=== PATIENT | female | born 1955 | race Caucasian/White ===

== ENCOUNTER 2016-10-02 11:18 | Day surgery (SDC) | payer MEDICARE ==
[2016-10-02] VITALS (13 sets, daily range): BP systolic 130–186; BP diastolic 64–85; PULSE 73–100; RESP 14–18; O2SAT 84–100
[~2016-10-02] VITALS: Ht 162.6 cm; Wt 80.4 kg
--- NOTE | 2016-10-02 06:44 | PCM.HPANE ---
Patient Data Surgeon Admitting Provider: Attending Provider:Bryan Montenegro DPM Primary Care Physician:Melody Hansen MD Other Provider:Marilu Kenyon Anesthesia Reason for Visit Right Hag[place], Retro Calcaneal Bursitis Ht/WT & BMI Height (Feet): 5 Height (Inches): 4 Weight (Kilograms): 82.1 Body Mass Index 30.00 Allergies Coded Allergies: methocarbamol (Verified Allergy, Severe, jittery and hyper, 10/31/09) Past Anesthesia History Anesthesia History: Denies:: Abnormal Airway, Anesthesia Reactions, Difficult Intubation, Fam Anesthesia Reaction, Fam Malignant Hypertherm, Malignant Hyperthermia Diabetes History Hx Diabetes?: Yes Type of Diabetes: Type II Glycemic Control: Oral Medication MRSA MRSA: Yes (2 WEEKS) Medications Reported Medications Albuterol HFA (Proair HFA)8.5 Gm Hfa.aer.ad2 Puffs INHALATION Q4H PRN For Wheezing #1 INHALER 10/02/16 Levothyroxine Sodium (Levo-T)88 Mcg Lzaqji19 Mcg PO MORNING 10/02/16 Fluticasone Propionate (Fluticasone Propionate Nasal)16 Gm [place].susp1 [place] NS BID #16 GM Ref 0 10/02/16 Cyclobenzaprine 10 Mg Dggpkc10 Mg PO HS PRN Spasm Ref 0 10/02/16 Fluticasone Propionate (Flovent HFA 110 mcg)12 Gm Aer.w.adap2 Puffs IH BID #12 GM Ref 0 09/30/16 Hydrocodone-Acetaminophen 5-325 mg 1 Each Tablet1 Tablet PO Q4H PRN For Pain Ref 0 09/30/16 Meclizine (Bonine)25 Mg Tab.chew25 Mg PO PRN For Dizziness 09/30/16 Montelukast 10 Mg Hykzha15 Mg PO HS Ref 0 09/30/16 Pregabalin (Lyrica)150 Mg Wkyjotz913 Mg PO BID 30 Days Ref 0 09/30/16 Duloxetine 60 Mg Capsule.dr60 Mg PO DAILY Ref 0 09/30/16 Metformin 500 Mg Akvmbe873 Mg PO DAILY Ref 0 09/30/16 Omeprazole Magnesium (Prilosec Otc)20 Mg Tablet.dr20 Mg PO DAILY #1 PKG Ref 0 09/30/16 Atorvastatin (Lipitor)10 Mg Tab10 Mg PO DAILY Ref 0 1/18/17 Discontinued Reported Medications Albuterol Sulfate (Ventolin HFA Inhaler)200 Puff/18 Gm Inhaler1 Puff INH Q4 PRN For Wheezing #1 INHALER Ref 0 09/30/16 Naproxen-Expunged Drug, Do Not Renew! (Naprosyn-Expunged Drug, Do Not Renew!) 500 Mg Htabeh263 Mg PO BID Ref 0 10/31/09 Levothyroxine-Expunged Drug, Do Not Renew! (Levoxyl-Expunged Drug, Do Not Renew! )88 Mcg Kmoftk29 Mcg PO AM Ref 0 10/31/09 Piroxicam-Expunged Drug, Do Not Renew! (Feldene-Expunged Drug, Do Not Renew!)20 Mg Fpekcdr81 Mg PO DAILY Ref 0 prn 10/31/09 Cyclobenzaprine-Expunged Drug, Do Not Renew! (Flexeril-Expunged Drug, Do Not Renew!)10 Mg Kvrrjw01 Mg PO HS Ref 0 prn 10/31/09 Trazodone-Expunged Drug, Do Not Renew! 50 Mg Sdwirj29 Mg PO HS Ref 0 prn 10/31/09 Fluticasone-Expunged Drug, Do Not Renew! (Flonase-Expunged Drug, Do Not Renew!) 120 Sprays/16 Gm Aero16 Gm NS PRN Ref 0 10/31/09 Estrogens Conj-Expunged Drug, Do Not Renew! (Premarin-Expunged Drug, Do Not Renew!)0.625 Mg Tab0.625 Mg PO qod Ref 0 alternate w/ .45mg 10/31/09 Estrogens Conj-Expunged Drug, Do Not Renew! (Premarin-Expunged Drug, Do Not Renew!)0.45 Mg Tablet0.45 Mg PO qod Ref 0 alternate w/ .625mg 10/31/09 Sulfamethoxazole/Trimeth 800-160 mg (Bactrim DS)1 Each Tablet1 Tablet PO BID Ref 0 09/30/16 Lisinopril 20 Mg Evikhv66 Mg PO DAILY 30 Days Ref 0 09/30/16 Lisin/HCTZ-Expunged, Do Not Renew! (Lisin/HCTZ 20/12.5-Expunged, Do Not Renew!) 1 Tab Tablet1 Tab PO HS Ref 0 10/31/09 Albuterol-Expunged Drug, Do Not Renew! 8.5 Gm Hfa.aer.ad2 Puffs IH PRN Ref 0 10/31/09 History History of ENT Problems?: Yes HEENT History: Positive for:: Sinus Problem (SEASONAL ALLERGIES) Denies:: Abnormal Airway Difficult Intubation Hearing Problem Hx of Heart Problems?: No Cardiovascular History: Positive for:: Coronary Artery Disease (HYPERLIPEDEMIA ) Hypertension Hx of Respiratory Problem?: Yes Respiratory History: Positive for:: Asthma Pneumonia (x2) Use of Inhalers / NEBS Denies:: Cough Other Resp Pertinent History: LUNG MASS BENIGN AT THIS TIME, PHYSICIANS ARE KEEPING AN EYE ON IT. HX OF BRONCHITIS Hx Neurologic Problems?: Yes Neurological History: Positive for:: Dizziness Headaches Denies:: CVA Hx of GI Problems?: Yes Gastrointestinal History: Positive for:: Gastroesphageal Reflux Hx of Problems?: No Female Hx: Denies:: Currently (hyterectomy) Skin History: Denies:: History Skin Disorders? Pressure Ulcers Musculoskeletal History: Positive for:: Degenerative Joint (CERVICAL AND LUMBAR SPINE) Fibromyalgia Osteoarthritis Hx of Psycho/Social Problems?: Yes Psycho Social History: Positive for:: Anxiety Hx Depression Hx Surgeries?: Yes (hyterectomy, sinus,rt shoulder, RIGHT FOOT) Hx Any Other Health Problems?: Yes Other History: Positive for:: Thyroid Disease (L THRYOID NODULE, HYPO,) History Blood Transfusions: Positive for:: Accept Blood Products? Denies:: Blood Transfusions Hx Diabetes: Yes Hx Alcohol Use: NoApprox How Many Cigarettes/day: 1 PACK Stop/Bang S-Snoring: Do You Snore Loudly: Yes T-Tired: feel tired, fatigued: Yes O-Obsered: Observed not breath: No P-Blood Pressure: treated: No B- Body Mass Index > 35 kg/m2: No A- Age over 50: Yes N- Neck Large Circumference: No G- Gender Male: No TAWANNA Total Score: 3 Risk Assessment Category Category 1A: Patient has history of documented sleep apnea, and HAS NOT received any narcotic, sedative or anesthesia administration during this stay. Category 1B: Patient has history of documented sleep apnea, and HAS received any narcotic , sedative or anesthesia administration during this stay Category 2: Patient has SUSPECTED Obstructive Sleep Apnea, and HAS received any narcotic , sedative or anesthesia administration during this stay. Category 3: Patient has SUSPECTED Obstructive Sleep Apnea and HAS NOT received narcotic, sedative or anesthesia administration during this stay. Category 4: Outpatient in Procedural Areas with known sleep apnea or who screen positive for High Risk via the STOP/BANG questionnaire. Exam Exam General Appearance: Alert, Oriented X3, Cooperative HEENT/AIRWAY: MP 2, Neck Movement (from), Mouth Opening (wnl) Lungs: Clear to Auscultation Heart: Exam Unremarkable Plan Impression Patient chart reviewed, patient interviewed and anesthestic plan with risks, benefits, and alternatives discussed, and informed consent obtained. ASA Physical Status: ASA2 Mod Systemic Disease Anesthetic Plan: GA Bene/Risks/Altern/Consents: Yes HP Complete Prior to Induction: Yes Leonard Callaway MD Oct 02, 2016 06:43
[~2016-10-02 11:18] MED LIST: ALBU18HF INH; ATRV10T PO; DULO60CA61 PO; ESTR0.45 PO; FLE10 PO; FLONASE NS; FLUT12AE8 IH; HYDR-4003 PO; LEVO88TA3 PO; MECL-114 PO; METF500T4 PO; MONT10TA23 PO; NAPR500T PO; OMEP20TA24 PO; PIRO20CA PO; PRE625 PO; PREG150C PO; TRAZ-151 PO
[2016-10-02] MEDS ORDERED: Rocuronium 10 mg/mL 5 mL Inj ONE (11:19)
[2016-10-02] MEDS ORDERED: fentaNYL-PF 50 mCg/mL 2 mL Inj ONE (11:19)
[2016-10-02] MEDS ORDERED: Propofol 10,000 mCg/mL 20 mL Inj ONE (11:19)
[2016-10-02] MEDS ORDERED: Glycopyrrolate 0.2 mg/mL 5 mL Inj ONE (11:19)
[2016-10-02] MEDS ORDERED: Ondansetron 2 mg/mL 2 mL Inj ONE (11:19)
[2016-10-02] MEDS ORDERED: Neostigmine 1 mg/mL 5 mL Inj ONE (11:19)
[2016-10-02] MEDS ORDERED: FLUT16SP NS (12:00)
[2016-10-02] MEDS ORDERED: LEVO88TA63 PO (12:00)
[2016-10-02] MEDS ORDERED: CYCL10TA9 PO (12:00)
[2016-10-02] MEDS: Lactated Ringer's 1,000 ML IV SCH ×2 (12:09→15:49)
[2016-10-02] MEDS ORDERED: ALBU8.5H2 INHALATION (12:18)
[2016-10-02] MEDS ORDERED: hydrOXYzine Inj 25 MG/1 mL SDV IM PRN (16:05)
[2016-10-02] MEDS ORDERED: HYDROmorphone 1 mg/mL Inj IVPUSH PRN (16:05)
[2016-10-02] MEDS ORDERED: hydrALAZINE 20 mg/mL Inj IVPUSH PRN (16:05)
[2016-10-02] MEDS ORDERED: Phenylephrine 10,000 mCg/mL Inj IVPUSH PRN (16:05)
[2016-10-02] MEDS ORDERED: EPHEDrine Sulfate 50 mg/mL Inj IVPUSH PRN (16:05)
[2016-10-02] MEDS ORDERED: Atropine 0.4 mg/mL Inj IVPUSH PRN (16:05)
[2016-10-02] MEDS ORDERED: Dexamethasone 4 mg/mL Inj IVPUSH PRN (16:05)
[2016-10-02] MEDS ORDERED: EPHEDrine Sulfate 50 mg/mL Inj IM PRN (16:05)
[2016-10-02] MEDS ORDERED: Labetalol 5 mg/mL 4 mL Inj IV PRN (16:05)
[2016-10-02] MEDS ORDERED: Ondansetron 2 mg/mL 2 mL Inj IVPUSH PRN (16:05)
[2016-10-02] MEDS ORDERED: Lactated Ringer's 500 ML IV PRN (16:05)
[2016-10-02] MEDS ORDERED: Lactated Ringer's 1,000 ML IV SCH (16:05)
[2016-10-02] MEDS ORDERED: Bupivacaine-MPF 0.5% W/EPI 30 mL Inj INFILTRATE ONE (16:15)
[2016-10-02] MEDS ORDERED: HYDROcodone-APAP 5-325 mg Tablet PO PRN (17:40)
--- NOTE | 2016-10-02 17:46 | PCM.PODPO ---
Podiatry Operative Report Date of Service: Oct 02, 2016 Date of Service Oct 02, 2016 Pre Operative Diagnosis Khang's deformity right lower extremity Retrocalcaneal bone spur right lower extremity Post Operative Diagnosis Same as preoperative diagnoses Procedure Excision of bone spur and Khang's deformity right lower extremity with Achilles tendon repair and debridement Surgeon Surgeon: Bryan Montenegro DPM Assistants: None Indication for Procedure Painful Khang's deformity and bone spur with insertional Achilles tendinosis Findings Thickening of the distal Achilles tendon at the insertion into the calcaneus with a enlarged bone spur and large Khang's deformity Details of Procedure Patient was identified in the preoperative holding area operative comorbidities and allergies were identified and thoroughly discussed. The patient was transported into the operating room and placed on the operating room table in the prone position. The patient was prepped and draped in the normal aseptic technique. A preoperative local block consisting of 20 mL of half percent Marcaine with epinephrine was given to the posterior aspect of the right ankle and Achilles tendon. Attention was first paid to the midline of the right Achilles tendon a 5 cm incision utilizing a fresh #15 blade was made directly over the midline. Most initially her skin all subcutaneous neurovascular structures were identified and retracted out of the surgical field. Blunt dissection was carried down through subcutaneous tissue to identify Achilles peritenon. The distal portion of the peritenon was incised with a Metzenbaum scissor and reflected both medially and laterally exposing the insertion of the Achilles tendon and the distal 3 cm of the Achilles. A #15 blade was then utilized to incise directly midline through the Achilles tendon and transversely at the incision reflecting the Achilles tendon making sure to maintain the most medial and lateral Achilles tendon insertion to the posterior aspect of the calcaneus. A rongeur was utilized to remove bursal tissue from the retrocalcaneal space. An osteotome was then utilized to resect the retrocalcaneal bone spur and Khang's deformity utilizing intraoperative C-arm guidance to ensure effective excision of bony prominence. A power bur was then utilized to smooth out the area locally. This wound was then cultured for support and normal saline. Inspection of the distal Achilles insertion site revealed moderate thickening in the Achilles tendon was debrided of deep tendinous tissue as well as mid substance fatty tissue. The midline of the distal Achilles tendon was repaired utilizing FiberWire and the Achilles tendon was reattached to the calcaneus with use of an Arthrex speed bridge. This wound again was comes in for support left normal saline. Peritenon was repaired utilizing number 3. 0 Vicryl subcutaneous closure was performed with 0 Vicryl and skin closure was performed utilizing number 3. 0 Prolene. The patient was dressed utilizing Adaptic sterile 4 x 4 gauze Kerlix and was placed into a mildly compressive Draek compression dressing with a posterior splint. No complications occurred during this procedure. The patient was transferred back into the supine positioning and transferred out of the operating room by the anesthesia service. Grafts, Implants: Implants-See Implant Record Complications There were no periprocedural complications identified. Condition Stable Anesthetic Administered: GA Catheters: None Output, Estimated Blood Loss: 20 Blood Admin during surgery: No Surgical Cast or Splint: Well-padded Short Leg Splint Surgical Specimen Removed: No Specimen sent to Pathology: No Post Operative Plan Ice and elevate right lower extremity Nonweightbearing right lower extremity Keep dressing clean dry and intact Follow-up in the office in 1 week Discharged to home when stable Dispense crutches if necessary Advance diet as tolerated Contact office with any questions or concerns regarding care Bryan Montenegro DPM Oct 02, 2016 17:46
--- NOTE | 2016-10-02 17:52 | PCM.ANEP1 ---
Post Anesthesia Phase 1 PACU Phase 1 Assessment Date of Service: Oct 02, 2016 Vital Signs Vital Signs Date Time Temp Pulse Resp B/P Pulse Ox O2 Delivery O2 Flow Rate FiO2 10/02/16 11:35 36.1 86 18 175/79 93 Room Air Anesthetic Administered: GA Level of Alertness: Awake, talking MELARA's with Equal Strength: Yes Pain: No Nausea or Vomiting: No Oxygen Delivery: Room Air Lungs: Normal Air Movement Leonard Callaway MD Oct 02, 2016 17:52
[2016-10-02] MEDS: fentaNYL-PF 50 mCg/mL 2 mL Inj IVPUSH PRN ×4 (18:44→18:56)
--- NOTE | 2016-10-03 08:47 | PCM.ANEP2 ---
Post Anesthesia Evaluation ASA/CMS Post Anesthesia VS in Patient's Normal Range?: Yes Resp Stable; Airway Patent?: Yes CV Function & Hydration Stable: Yes Mental Status Recovered?: Yes Pain control Satisfactory?: Yes N/V Control Satisfactory?: Yes Leonard Callaway MD Oct 03, 2016 08:47
== END 2016-10-02 23:59 | disposition home or self-care (01) ==
LOC: SAS 11:18
PROVIDERS: ATTEND Podiatrist Foot & Ankle Surgery
DX: M77.51 Other enthesopathy of right foot and ankle (principal); M77.31 Calcaneal spur, right foot; M92.61 Juvenile osteochondrosis of tarsus, right ankle; J45.909 Unspecified asthma, uncomplicated; E11.9 Type 2 diabetes mellitus without complications; E78.5 Hyperlipidemia, unspecified; K21.9 Gastro-esophageal reflux disease without esophagitis; F41.8 Other specified anxiety disorders; M79.7 Fibromyalgia; I10 Essential (primary) hypertension; E03.9 Hypothyroidism, unspecified; Z87.891 Personal history of nicotine dependence; Z79.51 Long term (current) use of inhaled steroids; Z79.84 Long term (current) use of oral hypoglycemic drugs
CPT/HCPCS: 27654; 28120; 76000; J0690; J2250; J2405; J2710; J7120

== ENCOUNTER 2017-04-20 07:07 | Day surgery (SDC) | payer MEDICARE, MEDICAID ==
--- NOTE | 2017-03-08 12:54 | PCM.HPANE ---
Patient Data Surgeon Admitting Provider: Attending Provider:Baudilio Hull MD Primary Care Physician:Melody Hansen MD Other Provider:Marilu Kenyon Anesthesia Reason for Visit Iron Def Anemia Ht/WT & BMI Body Mass Index Allergies Coded Allergies: methocarbamol (Verified Allergy, Severe, jittery and hyper, 10/31/09) Past Anesthesia History Anesthesia History: Denies:: Abnormal Airway, Anesthesia Reactions, Difficult Intubation, Fam Anesthesia Reaction, Fam Malignant Hypertherm, Malignant Hyperthermia Diabetes History Hx Diabetes?: Yes Type of Diabetes: Type II Glycemic Control: Oral Medication MRSA MRSA: Yes (2 WEEKS) Medications Reported Medications Albuterol HFA (Proair HFA)8.5 Gm Hfa.aer.ad2 Puffs INHALATION Q4H PRN For Wheezing #1 INHALER 10/02/16 Levothyroxine Sodium (Levo-T)88 Mcg Ltroyj81 Mcg PO MORNING 10/02/16 Fluticasone Propionate (Fluticasone Propionate Nasal)16 Gm [place].susp1 [place] NS BID #16 GM Ref 0 10/02/16 Cyclobenzaprine 10 Mg Qfyaiz33 Mg PO HS PRN Spasm Ref 0 10/02/16 Fluticasone Propionate (Flovent HFA 110 mcg)12 Gm Aer.w.adap2 Puffs IH BID #12 GM Ref 0 09/30/16 Hydrocodone-Acetaminophen 5-325 mg 1 Each Tablet1 Tablet PO Q4H PRN For Pain Ref 0 09/30/16 Meclizine (Bonine)25 Mg Tab.chew25 Mg PO PRN For Dizziness 09/30/16 Montelukast 10 Mg Pfhuyd70 Mg PO HS Ref 0 09/30/16 Pregabalin (Lyrica)150 Mg Sebonnh844 Mg PO BID 30 Days Ref 0 09/30/16 Duloxetine 60 Mg Capsule.dr60 Mg PO DAILY Ref 0 09/30/16 Metformin 500 Mg Mzndan352 Mg PO DAILY Ref 0 09/30/16 Omeprazole Magnesium (Prilosec Otc)20 Mg Tablet.dr20 Mg PO DAILY #1 PKG Ref 0 09/30/16 Atorvastatin (Lipitor)10 Mg Tab10 Mg PO DAILY Ref 0 09/30/16 History History of ENT Problems?: Yes HEENT History: Positive for:: Sinus Problem (SEASONAL ALLERGIES) Denies:: Abnormal Airway Cataracts Difficult Intubation Dysphagia Glaucoma Hearing Problem TMJ Denture Type: None Teeth Condition: Within Normal Limits Hx of Heart Problems?: No Cardiovascular History: Positive for:: Hypertension Denies:: AICD Abdominal Aortic Aneurism Atrial Fibrillation Cardiac Surgery Chest Pain Congestive Heart Failure Coronary Artery Disease Edema Heart Murmur Irregular Heartbeat Pacemaker Peripheral Vascular Rheumatic Fever Thrombophlebitis Valvular Heart Disease Hx of Respiratory Problem?: Yes Respiratory History: Positive for:: Asthma Pneumonia (x2) Denies:: COPD Chest Surgery Cough Dyspnea Emphysema Hemoptysis Oxygen Administration Pulmonary Embolism Tuberculosis Use of C-PAP Machine Use of Inhalers / NEBS Hx Neurologic Problems?: Yes Neurological History: Positive for:: Dizziness Headaches Denies:: Alzheimer's Disease CVA Dementia Multiple Sclerosis Parkinson's Disease Peripheral Neuropathy Seizures TIA Hx of GI Problems?: Yes Gastrointestinal History: Denies:: Cirrhosis Diverticulitis Gall Bladder Disease Gastroesphageal Reflux Heartburn Hepatitis Hiatal Hernia Liver Disease Rectal Bleeding Hx of Problems?: No Genitourinary History: Denies:: HX of Hemodialysis Kidney Stones Urinary Tract Infection Female Hx: Denies:: Currently (hyterectomy) Endometriosis Pelvic Inflammatory Problems with Breasts? Skin History: Denies:: History Skin Disorders? Pressure Ulcers Hx Musculoskeletal Problems?: Yes Musculoskeletal History: Positive for:: Degenerative Joint (CERVICAL AND LUMBAR SPINE) Denies:: Back Injury Fibromyalgia Joint Replacement Musculoskeletal Trauma Myasthenia Gravis Osteoarthritis Rheumatoid Arthritis Systemic Lupus Hx of Psycho/Social Problems?: Yes Psycho Social History: Positive for:: Anxiety Hx Depression Hx Surgeries?: Yes (hyterectomy, sinus,rt shoulder, RIGHT FOOT) Hx Any Other Health Problems?: Yes Other History: Positive for:: Thyroid Disease (L THRYOID NODULE, HYPO,) History Blood Transfusions: Denies:: Blood Transfusions Hx Diabetes: Yes Hx Alcohol Use: NoHx Substance Use: NoHave You Smoked inLast 12 mo: No Stop/Bang Risk Assessment Category Category 1A: Patient has history of documented sleep apnea, and HAS NOT received any narcotic, sedative or anesthesia administration during this stay. Category 1B: Patient has history of documented sleep apnea, and HAS received any narcotic , sedative or anesthesia administration during this stay Category 2: Patient has SUSPECTED Obstructive Sleep Apnea, and HAS received any narcotic , sedative or anesthesia administration during this stay. Category 3: Patient has SUSPECTED Obstructive Sleep Apnea and HAS NOT received narcotic, sedative or anesthesia administration during this stay. Category 4: Outpatient in Procedural Areas with known sleep apnea or who screen positive for High Risk via the STOP/BANG questionnaire. Exam Exam General Appearance: Alert, Oriented X3, Cooperative, Mild Distress HEENT/AIRWAY: MP 2 Lungs: Clear to Auscultation Heart: Exam Unremarkable Plan Impression Patient chart reviewed, patient interviewed and anesthestic plan with risks, benefits, and alternatives discussed, and informed consent obtained. ASA Physical Status: ASA2 Mod Systemic Disease Anesthetic Plan: GA, MAC Bene/Risks/Altern/Consents: Yes HP Complete Prior to Induction: Yes Leonard Callaway MD Mar 08, 2017 12:53
[~2017-04-20] VITALS: Ht 162.6 cm; Wt 83.0 kg
[~2017-04-20 07:07] MED LIST changes: -ALBU18HF INH; +ALBU8.5H2 INHALATION; +CYCL10TA9 PO; -ESTR0.45 PO; -FLE10 PO; -FLONASE NS; +FLUT16SP NS; -LEVO88TA3 PO; +LEVO88TA63 PO; -NAPR500T PO; -PIRO20CA PO; -PRE625 PO; -TRAZ-151 PO
[2017-04-20] MEDS ORDERED: Propofol 10,000 mCg/mL 20 mL Inj ONE (07:08)
[2017-04-20] MEDS ORDERED: Glycopyrrolate 0.2 MG/ML 1mL Inj ONE (07:08)
[2017-04-20] MEDS ORDERED: Ketamine 10 mg/mL 20 mL Inj ONE (07:08)
[2017-04-20 07:26] VITALS: BP 153/84; PULSE 78; RESP 16; O2SAT 95
[2017-04-20] MEDS ORDERED: FERR325C PO (07:42)
[2017-04-20] MEDS ORDERED: LOSA50TA37 PO (08:05)
[2017-04-20] MEDS: Lactated Ringer's 1,000 ML IV ONE ×2 (08:23→08:49)
[2017-04-20 08:56] VITALS: BP 118/71; PULSE 75; O2SAT 98
[2017-04-20 09:08] VITALS: BP 129/77; PULSE 86; O2SAT 97
[2017-04-20 09:16] VITALS: BP 142/56; PULSE 75; O2SAT 98
--- NOTE | 2017-04-20 09:39 | ENDO ---
[address] [address] ENDOSCOPY PROCEDURE PATIENT: ABDULAZIZ LOYA : 1955 MR#: [id number] ADMIT: 04/20/2017 JOB ID: [id number] DATE OF SERVICE: 04/20/2017 OPERATION: 1. Esophagogastroduodenoscopy with biopsy. 2. Colonoscopy with biopsy. PREOPERATIVE DIAGNOSES: 1. Iron deficiency anemia. 2. Gastroesophageal reflux disease. 3. Diarrhea. 4. Dysphagia. POSTOPERATIVE DIAGNOSIS(ES): 1. Poor prep status post biopsy. 2. Normal upper endoscopy status post biopsy. ANESTHESIA: Monitored anesthesia care. COMPLICATIONS: None. BLOOD LOSS: Minimal. DESCRIPTION OF PROCEDURE: After risks and benefits were explained to the patient, informed was obtained. After anesthesia administered, upper endoscope was inserted in mouth intubating to the esophagus, stomach, second portion of duodenum. Mucosa carefully examined. After procedure was done, the scope withdrawn and procedure terminated. Colonoscope was then inserted from rectum to cecum. Mucosa carefully examined. Prep of the patient was poor and inadequate. After procedure done the scope withdrawn and procedure terminated. The patient also states she did not complete her entire prep only took 1 out of 2 bottles of Suprep. FINDINGS: Upon inspection of the esophagus, the esophagus was normal without masses, ulcers, or lesions. Z-line located 40 cm from incisors. Upon entering the stomach, the stomach was also normal without masses, ulcers, or lesions. Retroflexion was normal. Duodenal bulb, first and second portion were normal. Biopsies taken at the duodenum, antrum body, and mid and distal esophagus. Upon inspection of the anus no masses, hemorrhoids, ulcers, or fissures were seen. Throughout the entire examination there was liquid brown stool seen throughout the entire colon serving as an adequate poor prep. The scope reached to the cecum, but again there was poor prep and intubation to the TI was not attempted. Random biopsies were taken. Retroflexion was normal. IMPRESSIONS: 1. Inadequate prep colonoscopy status post biopsy. 2. Normal endoscopy status post biopsy. RECOMMENDATIONS: Await pathology results. Repeat colonoscopy in six months to one year with anesthesia. Patient must follow instructions for her prep for the procedure. Follow up in GI clinic as needed.
--- NOTE | 2017-04-22 17:13 | PATH ---
SURGICAL PATHOLOGY Attending Physician:Baudilio Hull MD CASE STATUS: Signed Out PATIENT NAME: ABDULAZIZ LOYA PID: [id number] : 1955 DATE COLLECTED:04/20/2017 17:12 SPECIMEN: 1: Duodenum, Biopsy 2: Stomach, Antrum, Biopsy 3: Gastric, Biopsy 4: Esophagus, Biopsy 5: Esophagus, Biopsy 6: Colon, Biopsy CLINICAL HISTORY: ANEMIA 1). DUODENUM BIOPSY 2). ANTRUM BIOPSY (RULE OUT H.PYLORI) 3). GASTRIC BODY BIOPSY (RULE OUT H.PYLORI) 4). DISTAL ESOPHAGUS BIOPSY 5). MID ESOPHAGUS BIOPSY 6). RANDOM COLON BIOPSY FINAL DIAGNOSIS: 1.DUODENUM, BIOPSY: DUODENAL MUCOSA WITH NO DIAGNOSTIC ABNORMALITY. Negative for active inflammation, features of sprue, dysplasia, and malignancy. 2.ANTRUM, (RULE OUT H.PYLORI), BIOPSY: GASTRIC ANTRAL-TYPE MUCOSA WITH CHRONIC GASTRITIS. Negative for Helicobacter pylori microorganisms by immunohistochemistry. Negative for intestinal metaplasia. Negative for dysplasia and malignancy. 3.GASTRIC BODY, (RULE OUT H.PYLORI), BIOPSY: GASTRIC BODY-TYPE MUCOSA WITH CHRONIC GASTRITIS. Negative for Helicobacter pylori microorganisms by immunohistochemical stain. Negative for intestinal metaplasia. Negative for dysplasia and malignancy. 4.DISTAL ESOPHAGUS, BIOPSY: SQUAMOUS MUCOSA WITH NO DIAGNOSTIC ABNORMALITY. Intraepithelial eosinophils are not increased. Negative for dysplasia and malignancy. 5.MID ESOPHAGUS, BIOPSY: SQUAMOUS MUCOSA WITH NO DIAGNOSTIC ABNORMALITY. Intraepithelial eosinophils are not increased. Negative for dysplasia and malignancy. 6.RANDOM COLON, BIOPSY: COLONIC MUCOSA WITH NO DIAGNOSTIC ABNORMALITY. Negative for active, chronic and microscopic colitis. Negative for dysplasia and malignancy. [id number] GROSS DESCRIPTION: The specimen is received in six formalin filled containers labeled with the patient's name. 1). The specimen is labeled "duodenum" and consists of 2 portions of tissue which aggregate to zero 3 x 0.2 x 0.2 CM. The specimen is entirely submitted in cassette 1A. 2). The specimen is labeled "antrum" and consists of 2 portions of tissue which aggregate to 0.3 x 0.2 x 0.2 CM. The specimen is entirely submitted in cassette 2A. 3). The specimen is labeled "gastric body" and consists of 2 portions of tissue which aggregate to 0.3 x 0.3 x 0.2 CM. The specimen is entirely submitted in cassette 3A. 4). The specimen is labeled "distal esophagus" and consists of 2 portions of tissue which aggregate to 0.3 x 0.2 x 0.2 CM. The specimen is entirely submitted in cassette 4A. 5). The specimen is labeled "mid esophagus" and consists of 2 portions of tissue which aggregate to 0.3 x 0.2 x 0.2 seen. The specimen is entirely submitted in cassette 5A. 6). The specimen is labeled "random colon" and consists of 4 portions of tissue which aggregate to 0.3 x 0.3 x 0.2 CM. The specimen is entirely submitted in cassette 6A. 04/20/2017DC MICRO DESCRIPTION: 2. An immunohistochemical stain was performed to evaluate for Helicobacter organisms. A control stain showed appropriate reactivity. 3. An immunohistochemical stain was performed to evaluate for Helicobacter organisms. A control stain showed appropriate reactivity. This test was developed and its performance characteristics determined by [facility]. It has not been cleared or approved by the U. S. Food and Drug Administration. The FDA has determined that such clearance or approval is not necessary. This test is used for clinical purposes. It should not be regarded as investigational or for research. ICD-9 CODES: CPT CODES: 1: 07528 2: 38439, 13838 3: 92218, 49953 4: 69496 5: 55252 6: 02791 Electronically Signed Out Arben Hughes MD [facility] Pathology [facility] [address], [place] [address] Technical component performed at [facility], [facility] [address], [place], [address]
== END 2017-04-20 23:59 | disposition home or self-care (01) ==
LOC: END 07:07
PROVIDERS: ATTEND Internal Medicine Gastroenterology
DX: D50.9 Iron deficiency anemia, unspecified (principal); K21.9 Gastro-esophageal reflux disease without esophagitis; R13.10 Dysphagia, unspecified; R19.7 Diarrhea, unspecified; K29.40 Chronic atrophic gastritis without bleeding; E11.9 Type 2 diabetes mellitus without complications; Z79.84 Long term (current) use of oral hypoglycemic drugs; I10 Essential (primary) hypertension; J45.909 Unspecified asthma, uncomplicated
CPT/HCPCS: 43239; 45380; 88305; 88342; J2250; J2704; J7120